=== PATIENT | female | born 2000 | race Caucasian/White ===

== ENCOUNTER 2021-04-19 07:57 | Inpatient (IN) ==
[2021-04-19] MEDS ORDERED: Famotidine 20 MG/2 ML VIAL IVP PRN (08:02)
[2021-04-19] MEDS ORDERED: Azithromycin 500 MG in 0.9 % Sodium Chloride 250 ML IVPB PRN (08:02)
[2021-04-19] MEDS ORDERED: Ondansetron 4 MG/2 ML VIAL IVP PRN (08:02)
[2021-04-19] MEDS ORDERED: *HR* Nalbuphine 10 MG/ML AMPUL IV PRN (08:02)
[2021-04-19] MEDS ORDERED: Naloxone 0.4 MG/ML INJ IVP PRN (08:02)
[2021-04-19] MEDS ORDERED: Metoclopramide 10 MG/2 ML VIAL IVP PRN (08:02)
[2021-04-19] MEDS ORDERED: miSOPROStoL 25 MCG TABLET VG PRN (08:36)
[2021-04-19 09:05] LABS: Basophils % 0.2 %; Eosinophils # 0.1 K/mcL (0.0-0.6); Eosinophils % 0.9 %; Hematocrit 39.5 % (35.3-44.9); Hemoglobin 13.6 g/dL (11.5-15.4); Immature Granulocytes % 0.6 % (0-4); Lymphocytes # 2.4 K/mcL (0.6-4.6); Lymphocytes % 24.6 %; Mean Corpuscular HGB Conc 34.4 g/dL (31.6-35.5); Mean Corpuscular Hemoglobin 31.1 pg (28.0-33.3); Mean Corpuscular Volume 90.2 fL (83.0-100.0); Mean Platelet Volume 10.5 fL (9.4-12.4); Monocytes # 0.8 K/mcL (0.0-1.3); Neutrophils # 6.4 K/mcL (1.6-8.9); Platelet Count 253 K/mcL (140-400); Red Blood Count 4.38 M/mcL (3.82-4.97); Red Cell Distribution Width 12.9 % (11.5-14.5); Segmented Neutrophils % 65.7 %; White Blood Count 9.7 K/mcL (4.3-11.1)
[2021-04-19 09:31] LABS: Influenza A PCR Negative (Negative); Influenza B PCR Negative (Negative); Resp. Syncytial Virus PCR Negative (Negative)
[2021-04-19 09:33] LABS: SARS-CoV-2 by PCR (In House) Negative (Negative)
[2021-04-19] MEDS: Ringers Solution, Lactated 1,000 ML IVC SCH ×3 (09:43→19:38)
[2021-04-19] MEDS ORDERED: EPHEDrine 50 MG/ML VIAL IVP PRN (10:14)
[2021-04-19] MEDS: Epidural Premix (fent/bupiv) 110 ML EP SCH ×2 (10:55→16:47)
[2021-04-19 10:58] LABS: Hepatitis B Surface Antigen Nonreactive (Nonreactive)
[2021-04-19 11:27] LABS: HIV-1&2 Antibody & p24 Ag Nonreactive (Nonreactive)
[2021-04-19 12:50] LABS: Amphetamine Screen,Urine Negative ng/mL (Cutoff=1000); Barbiturate Screen,Urine Negative ng/mL (Cutoff=200); Benzodiazepines Screen,Urine Negative ng/mL (Cutoff=200); Cannabinoid Screen,Urine Negative ng/mL (Cutoff = 50); Cocaine Screen,Urine Negative ng/mL (Cutoff= 300); Opiate Screen,Urine Negative ng/mL (Cutoff=300); Phencyclidine Screen,Urine Negative ng/mL (Cutoff=25)
[2021-04-19] MEDS ORDERED: Oxytocin 20 units/ LR 1000 mL 20 UNIT/1,000 ML BAG IVC SCH (13:15)
[2021-04-19 15:10] LABS: Varicella Zoster IgG Antibody Negative
[2021-04-20] MEDS ORDERED: Lidocaine 1% 20 ML MDV ONE (03:27)
[2021-04-20] MEDS ORDERED: miSOPROStoL 100 MCG TABLET ONE (06:13)
[2021-04-20] MEDS ORDERED: Methylergonovine 0.2 MG/ML AMPUL IM ONE (06:13)
[2021-04-20] MEDS ORDERED: Benzocaine/Menthol 56 GM AEROSOL SPRAY TP PRN ×2 (06:39→09:32)
[2021-04-20] MEDS ORDERED: Ondansetron ODT 4 MG TAB.RAPDIS SL PRN ×2 (06:39→09:32)
[2021-04-20] MEDS ORDERED: Acetaminophen 325 MG TABLET PO SCH (06:39)
[2021-04-20] MEDS ORDERED: Lanolin 7 G OINT...G. TP PRN ×2 (06:39→09:32)
[2021-04-20] MEDS ORDERED: *HR* OxyCODONE Immed Rel 5 MG TABLET PO PRN (06:39)
[2021-04-20] MEDS ORDERED: Oxytocin 20 units/ LR 1000 mL 20 UNIT/1,000 ML BAG IVC SCH ×2 (06:39→09:45)
[2021-04-20] MEDS ORDERED: Rho Immune Globulin 1,500 UNIT SYRINGE IM PRN ×2 (06:39→09:32)
[2021-04-20] MEDS ORDERED: Prenatal Vit/FA 1 EACH TABLET PO SCH ×2 (09:00→09:45)
[2021-04-20] MEDS ORDERED: Ibuprofen 600 MG TABLET PO SCH (09:00)
[2021-04-20] MEDS ORDERED: Methylergonovine 0.2 MG/ML AMPUL IM SCH (09:09)
[2021-04-20] MEDS ORDERED: Measles/Mumps/Rubella Vacc 0.5 ML VIAL SQ PRN (09:32)
[2021-04-20] MEDS: Prenatal Vit/FA 1 EACH TABLET PO SCH (09:56)
[2021-04-20] MEDS: Acetaminophen 325 MG TABLET PO SCH ×2 (09:57→16:20)
[2021-04-20] MEDS ORDERED: Ringers Solution, Lactated 1,000 ML IVC ONE (11:21)
[2021-04-20] MEDS ORDERED: Ringers Solution, Lactated 1,000 ML ONE (11:25)
[2021-04-20 11:51] LABS: Basophils % 0.1 %; Hematocrit 28.5 % (35.3-44.9); Immature Granulocytes % 0.3 % (0-4); Lymphocytes # 1.1 K/mcL (0.6-4.6); Lymphocytes % 7.8 %; Mean Corpuscular HGB Conc 35.4 g/dL (31.6-35.5); Mean Corpuscular Hemoglobin 32.2 pg (28.0-33.3); Mean Corpuscular Volume 90.8 fL (83.0-100.0); Mean Platelet Volume 10.6 fL (9.4-12.4); Monocytes # 0.9 K/mcL (0.0-1.3); Monocytes % 6.1 %; Neutrophils # 12.3 K/mcL (1.6-8.9); Platelet Count 199 K/mcL (140-400); Red Blood Count 3.14 M/mcL (3.82-4.97); Red Cell Distribution Width 12.6 % (11.5-14.5); Segmented Neutrophils % 85.7 %; White Blood Count 14.3 K/mcL (4.3-11.1)
[2021-04-20 11:59] LABS: Hemoglobin 10.1 g/dL (11.5-15.4)
[2021-04-20] MEDS: Ibuprofen 600 MG TABLET PO SCH ×2 (14:50→20:24)
[2021-04-20 15:40] VITALS: O2SAT 98
[2021-04-20] MEDS: *HR* OxyCODONE Immed Rel 5 MG TABLET PO PRN (21:33)
[2021-04-21] MEDS: Acetaminophen 325 MG TABLET PO SCH ×2 (00:32→10:00)
[2021-04-21] MEDS: Ibuprofen 600 MG TABLET PO SCH ×2 (03:55→10:01)
[2021-04-21 05:31] LABS: Basophils % 0.2 %; Eosinophils # 0.1 K/mcL (0.0-0.6); Eosinophils % 0.7 %; Hematocrit 26.2 % (35.3-44.9); Hemoglobin 9.1 g/dL (11.5-15.4); Immature Granulocytes % 0.5 % (0-4); Lymphocytes # 2.1 K/mcL (0.6-4.6); Lymphocytes % 20.4 %; Mean Corpuscular HGB Conc 34.7 g/dL (31.6-35.5); Mean Corpuscular Hemoglobin 32.4 pg (28.0-33.3); Mean Corpuscular Volume 93.2 fL (83.0-100.0); Mean Platelet Volume 10.9 fL (9.4-12.4); Monocytes # 0.7 K/mcL (0.0-1.3); Monocytes % 6.9 %; Neutrophils # 7.3 K/mcL (1.6-8.9); Platelet Count 182 K/mcL (140-400); Red Blood Count 2.81 M/mcL (3.82-4.97); Segmented Neutrophils % 71.3 %; White Blood Count 10.3 K/mcL (4.3-11.1)
[2021-04-21 07:07] VITALS: BP 92/57; PULSE 64; TEMP 97.5
[2021-04-21] MEDS: Prenatal Vit/FA 1 EACH TABLET PO SCH (10:00)
[2021-04-21] MEDS: *HR* OxyCODONE Immed Rel 5 MG TABLET PO PRN (11:40)
== END 2021-04-21 16:35 | disposition home or self-care (01) | DRG 807 ==
LOC: 1NENULAB 07:57
PROVIDERS: ADMIT Obstetrics & Gynecology; ATTEND Obstetrics & Gynecology